=== PATIENT | male | born 1980 | race Two or more races ===

== ENCOUNTER 2021-10-06 13:55 | Emergency (ER) | payer OTHER ==
[2021-10-06 14:17] VITALS: BP 139/97; PULSE 87; TEMP 98.2; BMI 35.4
[2021-10-08 07:06] LABS: SARS-CoV-2 NAA Detected (Not Detected)
== END 2021-10-06 15:34 | disposition home or self-care (01) ==
LOC: JER 13:55
DX: B34.9 Viral infection, unspecified (principal)
CPT/HCPCS: 71046-TC-FY; 87804; 99284-25; C9803; U0003; U0005